=== PATIENT | female | born 1985 | race Caucasian/White ===

== ENCOUNTER 2017-07-23 08:28 | Emergency (ER) | payer MEDICAID | END 2017-07-23 09:43 | disposition home or self-care (01) | LOC: FTE 08:28 | DX: H66.93 Otitis media, unspecified, bilateral (principal); H60.90 Unspecified otitis externa, unspecified ear | CPT/HCPCS: 99283; Z7502 ==

== ENCOUNTER 2018-04-08 08:18 | Emergency (ER) | payer SELFPAY, MEDICAID | END 2018-04-08 08:53 | disposition home or self-care (01) | LOC: FTE 08:18 | DX: H60.92 Unspecified otitis externa, left ear (principal) | CPT/HCPCS: 99283; Z7502 ==

== ENCOUNTER 2018-09-05 09:14 | Emergency (ER) | payer MEDICAID | END 2018-09-05 09:53 | disposition home or self-care (01) | LOC: FTE 09:14 | DX: H60.91 Unspecified otitis externa, right ear (principal) | CPT/HCPCS: 99283; Z7502 ==